=== PATIENT | male | born 1995 | race Caucasian/White ===

== ENCOUNTER 2016-12-19 01:41 | Emergency (ER) | payer OTHER ==
[~2016-12-19] VITALS: Ht 180.3 cm; Wt 106.9 kg
[2016-12-19 04:19] VITALS: BP 138/75
== END 2016-12-19 04:19 | disposition home or self-care (01) ==
LOC: EXP 01:41 → EME 01:41 → EXP 04:19
PROC: 0HQ0XZZ Repair Scalp Skin, External Approach (ICD-10-PCS; principal; 2016-12-19)
DX: S01.01XA Laceration without foreign body of scalp, initial encounter (principal); W22.8XXA Striking against or struck by other objects, initial encounter; F17.200 Nicotine dependence, unspecified, uncomplicated
CPT/HCPCS: 99281; 99283

== ENCOUNTER 2016-12-30 02:50 | Emergency (ER) | payer OTHER ==
[~2016-12-30] VITALS: Ht 180.3 cm; Wt 109.0 kg
[2016-12-30 02:53] VITALS: BP 140/99
== END 2016-12-30 03:17 | disposition home or self-care (01) ==
LOC: EME 02:50
DX: S01.01XD Laceration without foreign body of scalp, subsequent encounter (principal)
CPT/HCPCS: 99281; 99283

== ENCOUNTER 2017-02-08 13:32 | Emergency (ER) | payer SELFPAY ==
[~2017-02-08] VITALS: Ht 182.9 cm; Wt 109.0 kg
[2017-02-08 14:17] LABS: BASOPHIL COUNT 0.1 K/uL (0-0.1); EOSINOPHIL (%) 1.7 % (0-5); EOSINOPHIL COUNT 0.1 K/uL (0-0.3); HEMATOCRIT 49.9 % (38.0-50.0); IMMATURE GRANULOCYTE (%) 0.5 % (0.0-0.7); INSTRUMENT ABS NEUTROPHIL CT 3.9 K/uL; LYMPHOCYTE COUNT 3.1 K/uL (1.0-2.8); MCH 31.1 PG (29.0-34.0); MCHC 36.1 G/DL (30.0-36.0); MCV 86.2 FL (86-99); MEAN PLAT.VOLUME 11.7 uM^3 (9.0-12.4); MONOCYTE (%) 14.2 % (3-12); MONOCYTE COUNT 1.2 K/uL (0-0.8); NEUTROPHIL (%) 45.6 % (45-76); NEUTROPHIL COUNT 3.9 K/uL (1.8-6.4); PLATELET COUNT 210 K/uL (156-360); RBC DIS.WIDTH-CV 11.4 % (11.8-14.6); RBC DIS.WIDTH-SD 35.6 % (39-53); RED BLOOD COUNT 5.79 M/uL (4.00-5.50); WHITE BLOOD COUNT 8.5 K/uL (4.1-10.2)
[2017-02-08 14:28] LABS: CHLORIDE 110 mEq/L (99-109); POTASSIUM 3.6 mEq/L (3.7-5.4); SODIUM 142 mEq/L (136-147)
[2017-02-08 14:30] LABS: GLUCOSE 115 mg/dL (70-99)
[2017-02-08 14:31] LABS: ANION GAP 13 MEQ/L (2-14)
[2017-02-08 14:34] LABS: GFR ESTIMATE (CALCULATED) > 59 mL/min/
[2017-02-08 14:35] LABS: UREA NITROGEN (BUN) 17 mg/dL (9-23)
[2017-02-08 15:45] LABS: ADD MIUA? YES; BILIRUBIN NEGATIVE; BLOOD LARGE; GLUCOSE (STRIP) NEGATIVE; KETONES NEGATIVE; LEUKOCYTES TRACE; NITRITE NEGATIVE; PROTEIN (STRIP) 100; SPECIFIC GRAVITY 1.035 (1.000-1.030)
[2017-02-08 15:49] LABS: BACTERIA RARE /HPF; EPITHELIAL CELLS RARE /HPF; MUCUS 4+ /LPF; RED BLOOD CELLS TNTC /HPF (0-5); UCUL ADDED? YES
[2017-02-08 15:51] LABS: COLOR YELLOW ((YELLOW))
[2017-02-08] MEDS ORDERED: ZOFRAN ODT4 MG PO (17:01)
[2017-02-08] MEDS ORDERED: PERCOCET 5/31 TABLET PO (17:03)
[2017-02-08] MEDS ORDERED: MOTRIN400 MG PO (17:06)
[2017-02-08] MEDS ORDERED: FLOMAX0.4 MG PO (17:17)
[2017-02-08 17:22] VITALS: BP 138/94
== END 2017-02-08 17:22 | disposition home or self-care (01) ==
LOC: EME 13:32
PROVIDERS: Emergency Medicine
DX: R10.32 Left lower quadrant pain (principal); F17.200 Nicotine dependence, unspecified, uncomplicated
CPT/HCPCS: 74176; 80048; 81003; 85025; 87086; 99281; 99284; J1885; J2270; J2405; J7030